=== PATIENT | male | born 1985 | race Caucasian/White ===

== ENCOUNTER → 2016-04-19 11:41 | Outpatient (CLI) | payer MEDICAID, BC ==
--- NOTE | 2016-04-24 08:45 | EEG ---
PATIENT:BRANDAN FISHMAN DATE OF SERVICE: 04/19/16 MEDICAL RECORD: [id number] DATE OF : 85 LOCATION: [facility] ADMISSION DATE: 04/19/16 REFERRING PHYSICIAN: INTERPRETING PHYSICIAN: BROOK WAKEFIELD MD DATE OF SERVICE: 04/19/2016 REFERRING PHYSICIAN: Dr. Soto as an outpatient. ELECTROENCEPHALOGRAM NUMBER: [id number] DATE OF EXAMINATION: 04/19/2016 at 12:30 p.m. TECHNICAL DATA: This electroencephalographic recording consists of approximately 20 minutes of data collection utilizing the international 10/20 system of electrode placement and both referential and non-referential montages. Sixteen channels of electrocerebral recording are accompanied by a 17th channel dedicated to the electrocardiographic rhythm and to 2 channels of electromyographic recording. Recording is performed in the awake and drowsy states utilizing activation by hyperventilation and photic stimulation. ELECTROENCEPHALOGRAPHIC DATA: The awake state comprises approximately 70% of the recorded electrocerebral activity. Electromyographic artifact is prominent and rapid eye movements are seen. The posterior dominant background consists of a symmetric, rhythmic, waxing and waning 9-10 Hz alpha activity, which is suppressed by eye opening. The drowsy state comprises the remaining portion of the recorded electrocerebral activity. Electromyographic artifact is diminished and rapid eye movements are not seen. The posterior dominant background is relatively suppressed. Also seen is an intermittent irregular, generalized and symmetric 5-6 Hz theta activity, which occurs for periods of 1-2 seconds approximately once every 2-3 pages. No abnormal or focal slowing is identified. No epileptiform discharges are seen. Hyperventilation and photic stimulation induced no abnormal change in the recorded electrocerebral activity. INTERPRETATION: Normal (awake and drowsy). This is a normal electroencephalographic recording. TRANSINT:[id number] Voice Confirmation ID: [id number] DOCUMENT ID: [id number] ELECTROENCEPHALOGRAM REPORT [id number] KYEBRANDAN KAHN AVERY BROOK WAKEFIELD MD at 0845 CC: [id number] DICTATION DATE: 04/20/16 0631 PRE CODER: 04/20/16 2256 DEP CLI 04/19/16 [place] [address]
== END | disposition home or self-care (01) ==
LOC: D.CN 04-16 11:00
DX: R56.9 Unspecified convulsions (principal)

== ENCOUNTER 2020-08-12 13:16 | Emergency (ER) | payer SELFPAY ==
[~2020-08-12] VITALS: Ht 185.4 cm; Wt 150.0 kg
[2020-08-12 13:27] VITALS: Ht 185.4 cm; Wt 150.0 kg
[2020-08-12] MEDS ORDERED: METHOCARBAMOL500 MG PO (13:50)
[2020-08-12] MEDS ORDERED: DICLOFENAC SODI50 MG PO (13:50)
[2020-08-12] MEDS ORDERED: PREDNISONE50 MG PO (13:50)
[2020-08-12 14:56] VITALS: BP 168/88
== END 2020-08-12 15:02 | disposition home or self-care (01) ==
LOC: D.ER 13:16
DX: M54.12 Radiculopathy, cervical region (principal); M62.838 Other muscle spasm